=== PATIENT | male | born 1955 | race Caucasian/White ===

== ENCOUNTER → 2018-08-26 13:52 | Outpatient (CLI) | payer MEDICARE, SELFPAY ==
--- NOTE | 2018-08-26 | DI.MRI.S_ITS ---
PROCEDURE: MR CERVICAL SPINE WO CON INDICATIONS: Radiculopathy, cervical region TECHNIQUE: Noncontrast sagittal T1 spin echo and T2 fast spin echo, sagittal STIR, foraminal oblique sagittal T2 fast spin echo, and axial gradient echo or T2 fast spin echo through the cervical spine. COMPARISON: [facility], MR, CERVICAL SPINE W/O CONTRAST, 12/21/2007, 6:47. FINDINGS: Image quality: Excellent. Alignment and Curvature: There is normal bony alignment. Bone Marrow: Marrow demonstrates normal overall signal. Anterior fusion of C5-C7 has been performed. There is mild reactive signal within the endplates adjacent to the at C2-C3, C3-C4, C4-C5, and C7-T1 intervertebral discs. Spinal Cord: Visualized spinal cord has normal size and signal. No cerebellar tonsillar herniation. Paraspinous Soft Tissues: No paravertebral masses. Prevertebral soft tissues are normal in thickness. C2-C3: Congenital canal stenosis. Disc desiccation. Mild diffuse disc bulge with small superimposed left paracentral protrusion. Mild facet hypertrophy bilaterally. Mild canal stenosis. Mild bilateral foraminal stenosis. C3-C4: Congenital canal stenosis. Mild disc desiccation and diffuse disc bulge. Mild facet and uncovertebral hypertrophy bilaterally. Moderate canal stenosis. Moderate right and mild left foraminal stenosis. No change. C4-C5: Mild disc height loss and desiccation. Mild diffuse disc bulge. Congenital canal stenosis. Bilateral facet and uncovertebral hypertrophy. Severe right and moderate left foraminal stenosis. Increased, severe canal stenosis. Mild cord flattening. C5-C6: Status post fusion. Bilateral facet hypertrophy. No significant canal stenosis. Mild bilateral foraminal stenosis. C6-C7: Bilateral facet of vertebrae. Status post fusion. No significant canal stenosis. Mild bilateral foraminal stenosis. No change. C7-T1: The disc desiccation. Mild diffuse disc bulge. Mild bilateral facet hypertrophy. Mild canal stenosis. No foraminal stenosis. No change. IMPRESSION: 1. Status post lower cervical fusion with resolution of previously seen canal stenoses at the fused levels. 2. Multilevel degenerative disc and facet disease, as well as uncovertebral hypertrophy. 3. Multilevel canal stenoses, worst at C4-C5, where there is severe canal stenosis and mild cord flattening. 4. Multilevel foraminal stenoses, worst at C4-C5 on the right where there is severe foraminal stenosis. Dictated by: Chris Schwartz M.D. on 08/26/2018 at 15:32 Approved by: Chris Schwartz M.D. on 08/26/2018 at 15:37
== END ==
PROVIDERS: Family Provider Internal Medicine; PCP Internal Medicine; Visit Provider Internal Medicine
DX: M50.11 Cervical disc disorder with radiculopathy, high cervical region (principal); M48.02 Spinal stenosis, cervical region; Z98.1 Arthrodesis status
CPT/HCPCS: 72141

== ENCOUNTER → 2020-07-31 19:03 | Outpatient (ROUT) | payer OTHER, SELFPAY ==
[2020-07-31 19:28] LABS: HEMOLYSIS < 15 (0-50)
[2020-07-31 19:33] LABS: Aspartate Aminotransferase 29 IU/L (17-59); BUN Creatinine Ratio 19.8 (6-22); Blood Urea Nitrogen 18 mg/dL (9-20); Calcium 9.7 mg/dL (8.4-10.2); Carbon Dioxide 28 mmol/L (22-32); Chloride 106 mmol/L (98-107); Cholesterol 142 mg/dL (140-199); Estimated Glomerular Filt Rate > 60.0 mL/min (>60); Glucose 114 mg/dL (80-110); HDL Cholesterol 55 mg/dL (40-60); LDL Cholesterol Calculated 69 mg/dL (<100); Potassium 4.4 mmol/L (3.4-5.1); Sodium 139 mmol/L (137-145); Triglycerides 91 mg/dL (35-150)
[2020-07-31 20:01] LABS: TSH w/ Reflex to FT4 2.22 uIU/mL (0.47-4.68)
[2020-07-31 20:05] LABS: Prostate Specific Antigen 0.924 ng/mL (0.10-4.00)
== END ==
PROVIDERS: Family Provider Internal Medicine; PCP Internal Medicine; Visit Provider Internal Medicine
DX: I10 Essential (primary) hypertension (principal); E78.2 Mixed hyperlipidemia; E03.9 Hypothyroidism, unspecified; N40.0 Benign prostatic hyperplasia without lower urinary tract symptoms
CPT/HCPCS: 80048; 80061; 84153; 84443; 84450

== ENCOUNTER → 2021-04-01 14:21 | Outpatient (CLI) | payer OTHER, SELFPAY ==
[2021-04-01 15:24] LABS: COVID19 -Nasal RAPID Negative (Negative)
== END ==
PROVIDERS: Family Provider Internal Medicine; PCP Internal Medicine; Visit Provider Physician Assistant
DX: Z01.812 Encounter for preprocedural laboratory examination (principal); Z20.822 Contact with and (suspected) exposure to COVID-19
CPT/HCPCS: 87635; C9803

== ENCOUNTER → 2022-07-16 14:26 | Outpatient (CLI) | payer MEDICARE, SELFPAY ==
[2022-07-16 15:21] LABS: Hematocrit 42.3 % (41-53); Hemoglobin 14.5 g/dL (13.5-17.5); Mean Corpuscular HGB Conc 34.4 % (30-36); Mean Corpuscular Hemoglobin 32.3 PG (26-34); Mean Corpuscular Volume 94.1 fL (80-100); Platelet Count 217 X10^3/uL (150-400); Red Blood Cell Count 4.49 X10^6/uL (4.5-5.9); Red Cell Distribution Width 12.9 % (11.6-14.8); White Blood Cell Count 4.3 X10^3/uL (4.5-11.0)
[2022-07-16 15:35] LABS: Alanine Aminotransferase 28 IU/L (<50); Albumin 4.5 g/dL (3.5-5.0); Albumin Globulin Ratio 1.3 (1.0-2.8); Alkaline Phosphatase 82 U/L (38-126); Aspartate Aminotransferase 35 IU/L (17-59); BUN Creatinine Ratio 15.6 (6-22); Bilirubin Total 0.8 mg/dL (0.2-1.3); Blood Urea Nitrogen 14 mg/dL (9-20); Calcium 9.9 mg/dL (8.4-10.2); Carbon Dioxide 30 mmol/L (22-32); Chloride 101 mmol/L (98-107); Cholesterol 168 mg/dL (140-199); Estimated Glomerular Filt Rate > 60 mL/min (>60); Globulin 3.6 g/dL (1.7-4.1); Glucose 125 mg/dL (80-110); HDL Cholesterol 60 mg/dL (40-60); HEMOLYSIS < 15 (0-50); LDL Cholesterol Calculated 90 mg/dL (<100); Potassium 4.4 mmol/L (3.4-5.1); Sodium 142 mmol/L (137-145); Total Protein 8.1 g/dL (6.3-8.2); Triglycerides 88 mg/dL (35-150)
[2022-07-16 16:05] LABS: Prostate Specific Antigen 1.11 ng/mL (0.10-4.00)
[2022-07-16 16:06] LABS: TSH w/ Reflex to FT4 2.59 uIU/mL (0.47-4.68)
== END ==
PROVIDERS: Family Provider Internal Medicine; PCP Internal Medicine; Referring Provider Internal Medicine; Visit Provider Internal Medicine
DX: E03.9 Hypothyroidism, unspecified (principal); E78.2 Mixed hyperlipidemia; N40.0 Benign prostatic hyperplasia without lower urinary tract symptoms; I10 Essential (primary) hypertension; I48.0 Paroxysmal atrial fibrillation
CPT/HCPCS: 36415; 80053; 80061; 84153; 84443; 85027

== ENCOUNTER → 2022-09-10 13:44 | Outpatient (CLI) | payer MEDICARE, SELFPAY ==
--- NOTE | 2022-09-10 13:45 | DI.ECHO.S_ITS ---
[place] [facility]---------+ [facility] +---------+ : : [address] : : : : [id number] : : : : Phone: [phone]+ Echocardiogram Report + + :Name: LORNA TREJO Study Date: 09/10/2022 Height: 69.5 in: :[facility] ReadingLocation: Weight: 210 lb : : Gender: Male BSA: 2.1 m2 : :: 1955 Age: 67 yrs BP: 148/93 mmHg: :Reason For Study: ATRIAL FIBRILLATION : :Ordering Physician: LAURIE, : :ALMA ROSA Performed By: Elva Vincent : :Referring: ALMA ROSA SULLIVAN : + + Interpretation Summary Left ventricular systolic function remains normal with an estimated ejection fraction of 55 to 60% without any focal wall motion abnormality. Left ventricular volumes appear normal with borderline increased wall thickness which is slightly progressive, but with probable normal diastolic function and normal filling pressures which are likely unchanged. The right ventricle was borderline enlarged but slightly smaller compared to the previous study. Systolic function remains normal. Right ventricular systolic pressure cannot be estimated but CVP continues to be around 3 mmHg. Both atria are normal in size and measure slightly smaller compared to the previous study. There is a aneurysmal interatrial septum but without any Doppler evidence for a shunt. The mitral valve has a borderline flat closure plane but no significant mitral regurgitation and there is no significant functional valvular heart disease. The aortic root remains moderately enlarged but measures slightly smaller at 4.5 cm compared to the previous 4.8 cm. The ascending aorta and aortic arch are mildly enlarged and measure slightly larger compared to the previous study at 3.5 and 3.3 cm, respectively, compared to 3.3 and 2.9 cm previously. Procedure: A two-dimensional transthoracic echocardiogram with color flow and Doppler was performed. The study quality was technically adequate. Comparison is made with the echocardiogram of 04/21/2016. The patient was in sinus bradycardia with heart rates between 59-65 bpm during the exam. Left Ventricle: The left ventricle is normal in size. Left ventricular wall thickness is at the upper limits of normal. This is slightly more prominent compared to the previous study. Left ventricular systolic function appears normal without focal wall motion abnormalities. The ejection fraction is estimated to be 55-60%. Diastolic parameters suggest probable normal left ventricular diastolic function and normal filling pressures. Right Ventricle: The right ventricle is at the upper limits of normal in size. This is smaller compared to the previous study. The right ventricular systolic function is normal. Atria: Both atria are normal in size. Both atria have mildly decreased in size since the prior echo exam. The atrial septum is aneurysmal. The interatrial septum grossly appears intact with no obvious evidence for an atrial septal defect. There is no Doppler evidence for an interatrial shunt. Mitral Valve: There is a flat closure plane of the the mitral valve leaflets. There is trace mitral regurgitation. Aortic Valve: The aortic valve is trileaflet. The aortic valve opens well. There is no aortic valve stenosis. No aortic regurgitation is present. Tricuspid Valve: The tricuspid valve is normal in structure and function. There is trace tricuspid regurgitation. Pulmonary artery pressures cannot be estimated because of the lack of a measurable TR jet velocity but the IVC suggests a CVP of around 3 mmHg. Pulmonic Valve: The pulmonic valve leaflets are thin and pliable; valve motion is normal. There is no pulmonic valvular regurgitation. There is no significant valvular heart disease. Great Vessels: The aortic root is moderately dilated. This is slightly smaller compared to the previous study. The ascending aorta is at the upper limits of normal in size. The aortic arch is mildly enlarged. This is slightly larger compared to the previous study. The IVC is of normal diameter and collapses greater than 50% with a sniff. This suggests a low right atrial pressure of 3 mm Hg. Pericardium/ Pleura There is no pericardial effusion. There is no pleural effusion. MMode/2D Measurements & Calculations LVIDd: 5.1 cm LVOT diam: 2.2 cm LVIDs: 3.4 cm Ao root diam: 4.5 cm FS: 33.3 % asc Aorta Diam: 3.5 cm IVSd: 1.1 cm Ao Arch Diam (Prox Trans): 3.3 cm LVPWd: 1.1 cm LV solano. diameter/BSA (cm/m^2): 2.4 LV sys. diameter/BSA (cm/m^2): 1.6 LA A2 area: 23.5 cm2 RA long axis: 5.4 cm LA A4 area: 18.5 cm2 RA area: 15.9 cm2 LA length (vol): 5.2 cm RA vol: 40.2 ml LA vol: 70.5 ml RA : 19.0 ml/m2 LA vol index: 33.2 ml/m2 IVC diam: 1.5 cm RVD1 (basal): 4.5 cm RVD2 (mid): 3.5 cm TAPSE: 2.4 cm Doppler Measurements & Calculations Ao V2 max: 139.6 cm/sec LVOT Max Joey: 114.5 cm/sec Ao V2 mean: 94.5 cm/sec LV V1 max P.2 mmHg Ao max P.8 mmHg LV V1 VTI: 25.2 cm Ao mean P.1 mmHg FLAQUITO(I,D): 3.3 cm2 Ao V2 VTI: 28.8 cm FLAQUITO(V,D): 3.1 cm2 sev ratio: 0.88 FLAQUITO indexed to BSA (cm^2/m^2): 1.6 MV E max joey: 96.3 cm/sec TR max joey: 214.8 cm/sec MV A max joey: 85.9 cm/sec TR max P.5 mmHg MV E/A: 1.1 PA V2 max: 101.7 cm/sec Med Peak E' Joey: 7.5 cm/sec PA V2 mean: 70.3 cm/sec E/E' med: 12.8 PA mean P.2 mmHg Lat Peak E' Joey: 9.7 cm/sec PA pr(Accel): 24.2 mmHg E/E' lat: 9.9 E/e' average: 11.3 MV dec time: 0.26 sec SV(LVOT): 94.7 ml Reading Physician:04:52 PM
== END ==
PROVIDERS: Family Provider Internal Medicine; PCP Internal Medicine; Referring Provider Specialist; Visit Provider Specialist
DX: I48.0 Paroxysmal atrial fibrillation (principal); Q21.10 Atrial septal defect, unspecified; I77.810 Thoracic aortic ectasia
CPT/HCPCS: 93306

== ENCOUNTER → 2023-11-18 16:47 | Outpatient (CLI) | payer OTHER, SELFPAY ==
[2023-11-18 18:12] LABS: Aspartate Aminotransferase 31 IU/L (17-59); Blood Urea Nitrogen 12 mg/dL (9-20); Calcium 10.1 mg/dL (8.4-10.2); Carbon Dioxide 27 mmol/L (22-32); Chloride 103 mmol/L (98-107); Cholesterol 163 mg/dL (140-199); Estimated Glomerular Filt Rate > 60 mL/min (>60); Glucose 103 mg/dL (80-110); HDL Cholesterol 47 mg/dL (40-60); HEMOLYSIS < 15 (0-50); LDL Cholesterol Calculated 93 mg/dL (<100); Potassium 4.3 mmol/L (3.4-5.1); Sodium 137 mmol/L (137-145); Triglycerides 117 mg/dL (35-150)
[2023-11-18 18:37] LABS: TSH w/ Reflex to FT4 1.06 uIU/mL (0.47-4.68)
[2023-11-18 18:41] LABS: Prostate Specific Antigen 1.04 ng/mL (0.10-4.00)
== END ==
PROVIDERS: Family Provider Internal Medicine; PCP Internal Medicine; Referring Provider Internal Medicine; Visit Provider Internal Medicine
DX: E03.9 Hypothyroidism, unspecified (principal); N40.1 Benign prostatic hyperplasia with lower urinary tract symptoms; N13.8 Other obstructive and reflux uropathy; E78.2 Mixed hyperlipidemia
CPT/HCPCS: 36415; 80048; 80061; 84153; 84443; 84450

== ENCOUNTER → 2024-02-07 15:56 | Outpatient (CLI) | payer MEDICARE, SELFPAY ==
--- NOTE | 2024-02-07 16:00 | DI.RAD.S_ITS ---
PROCEDURE: XR ANKLE LT MIN 3V INDICATIONS: L ankle pain after fall TECHNIQUE: 3 views of the ankle were acquired. COMPARISON: None. FINDINGS: Bones: There is minimal lucency seen involving the lateral talar dome. No additional focal bony abnormality can be seen. Generalized degenerative change and osteopenia can be seen. Ankle mortise is normally aligned. No suspicious bony lesions. Soft tissues: No tibiotalar joint effusion. Achilles tendon appears normal. Atherosclerotic calcification is noted. IMPRESSION: Minimal lucency seen involving the lateral talar dome. Please consider osteochondral defect. If it would be helpful for clinical management decision making, please consider a dedicated, scheduled ankle MRI for further evaluation (assuming that there is no contraindication). Dictated by: Marc Fitzgerald M.D. on 02/07/2024 at 15:23 Approved by: Marc Fitzgerald M.D. on 02/07/2024 at 15:24
== END ==
PROVIDERS: Family Provider Internal Medicine; PCP Internal Medicine; Referring Provider Physician Assistant Medical; Visit Provider Physician Assistant Medical
DX: M25.572 Pain in left ankle and joints of left foot (principal)
CPT/HCPCS: 73610

== ENCOUNTER 2024-12-20 06:12 | Day surgery (SDC) | payer MEDICARE, SELFPAY ==
[2024-12-09 12:37] VITALS: BMI 31.4
[2024-12-20] VITALS (9 sets, daily range): BP systolic 138–159; BP diastolic 78–93; PULSE 15–84; RESP 9–72; TEMP 36.2–36.7; O2SAT 94–97; BMI 31.7
--- NOTE | 2024-12-20 | PATH_ITS ---
[facility] Accession Number: [id number] No. of containers..01 Tissue . 01 Material submitted: . prostate - PROSTATE CHIPS . 01 Diagnosis: PROSTATE CHIPS, TRANSURETHRAL PROSTATIC TISSUE RESECTION: Benign prostatic parenchyma, weight 5 grams, with stromal nodular hyperplasia. Benign urothelial mucosa also present. Negative for high-grade prostatic intraepithelial neoplasia or invasive carcinoma. MRV 12/22/2024 1532 Local . 01 Electronically signed: . Leydi Bautista MD, Pathologist NPI- [id number] . 01 Gross description: . Received in formalin with two patient identifiers and prostate chips, are multiple ridley and largely hemorrhagic soft tissue fragments weighing 5 grams and aggregating to 4.5 x 3.3 x 1.4 cm. Submitted entirely in A1-A5. ([id number]) /MRV 12/21/2024 1913 Local . 01 Pathologist provided ICD-10: N40.1 . 01 CPT . 375604 Specimen Comment: A courtesy copy of this report has been sent to [phone] Performed at: [address] [address] [address], [place], [place] [id number] MD Samson Marquez MD Phone: [phone]
[2024-12-20] MEDS: LACTATED RINGERS 1,000 ML 42 ML IV ×2 (07:24→09:46)
[2024-12-20] MEDS: ACETAMINOPHEN 325 MG TABLET 975 MG PO (07:24)
--- NOTE | 2024-12-20 07:39 | PM.PREOP ---
Pre-operative Note COVID-19 COVID-19 status: Not tested Interval Note History & Physical reviewed/Exam performed by Physician: Yes Changes to H&P: No
[2024-12-20] MEDS: CEFAZOLIN 2 GM/100 ML PREMIX 100 ML IV (08:01)
--- NOTE | 2024-12-20 08:23 | SUR.OPER ---
Lithotomy on padded OR bed, head on pillow, arms secured on padded arm boards at <90 degrees abduction. Legs secured in padded yellow fins stirrups.
--- NOTE | 2024-12-20 09:29 | P.OP_ITS ---
Procedure & Clinicians Procedure: 1. Aquablation 2. Transrectal ultrasound of prostate 3. Transurethral resection of prostate with fulguration 4. Placement of Vu catheter Same procedure as scheduled: Yes Indications: This 69-year-old gentleman presented with complaints of BPH with LUTS failing medical management was worked up and found to be an ideal candidate for Aquablation. Had a prostate in the 40 g range details of his workup or in the history of present illness of his H&P. He presents this time for Aquablation to treat his lower urinary tract symptoms/bladder outlet obstruction. Surgeon: Xander Huff Click Yes if Unassisted: Yes Anesthesia Type: General Operative Notes Findings: Findings: Urethral meatus is normal, urethra is normal along its length with normal mucosa. The sphincter as well coapted. The prostate exhibits bilobar obstruction with minimal bulging into the bladder and no median lobe. The ureteral orifices in normal position with clear efflux both at the beginning and the end of the case. The bladder itself exhibited severe trabeculation and no other abnormality. At the end of the procedure the patient's prostate was widely patent and with the bladder full and the scope removed he had a vigorous stream. Total Aquablation time was 7 minutes time from truss the catheter was 58 minutes. Blood loss was 25 mL. And no other abnormalities were noted. Closure Type: not applicable Specimen(s): other (Prostate chips) Prosthetic devices, grafts, tissues, transplants, or devices: [address] catheter with 45 cc in the balloon was left in good position to continuous bladder irrigation. Applied: catheter (Please see above) Estimated Blood Loss (mL): 25 Blood products transfused: none Procedure in detail: Procedure in detail: After informed consent was obtained, the patient was identified brought to the operating room where he was placed in a supine position on the table. Once there anesthesia was induced and maintained.. Ensuring an adequate level of anesthesia the patient was transitioned to the lithotomy position. Once in lithotomy position he was prepped in a sterile fashion. After time-out, administration of antibiotics, ensuring an adequate level of anesthesia, 60 cc of ultrasound gel was instilled within the rectum and the ultrasound probe was placed in the following fashion. The truss stepper which was mounted to the articulating arm and secured the ultrasound probe was inserted and aligned and confirmation made that it the prostate was centered and aligned in both the transverse and longitudinal planes. The bladder neck, verumontanum landmarks within the prostate and external sphincter were identifi ed. With the ultrasound probe in place aligned and centered the patient was then draped in a sterile fashion. The aqua beam handpiece which was then inserted through the prostatic urethra prostate and into the bladder. Where cystoscopy was performed as it was inserted the level of the external sphincter verumontanum mid prostate and bladder neck were all noted on the ultrasound. The aqua beam handpiece was then secured to the handpiece articulating arm. It was then confirmed that the Aquablation handpiece and truss probe were parallel and colinear. The confirmation and was then made that the aqua beam nozzle was centered and anterior the of the bladder neck. The cystoscope was then retracted and the prostate verumontanum and external sphincter were visualized once again and the tip of the scope was left just proximal to the external sphincter. The alignment of the truss probe and Aquablation handpiece was again confirmed and compression applied to the truss probe. Horizontal alignment of the aqua jet nozzle was noted to be again at the 3 and 9 o'clock position. The Aquablation ablation treatment zones were then planned and real-time using live ultrasound. The depth and radial angles of resection were defined in the transverse view in the longitudinal view the Aquablation beam nozzle was identified and registered its position with the software. The length of treatment was then identified. And the contours at the bladder neck mid prostate and veru were defined. There was no median lobe and so an no planning was needed for that with the treatment plan in place and ensuring the patient was paralyzed the Aquablation treatment was started. It appeared that the nozzle was not aligned so 1 minute into the treatment and was stopped and re planning was performed with this in place of the 1st pass was completed. This was 2 minutes and 50 seconds. With this completed a 2nd treatment pass was planned and completed total time was 7 minutes. With the Aquablation team and Aquablation completed the cystoscope was advanced to the tip of the hand piece and the hand piece was looked out under direct vision after it from the handpiece articulating arm. A resectoscope was then inserted. Mauricio evacuator used to evacuate the bladder and clots. The resectoscope was then used to resect the bladder neck from the 9 to 3 o'clock position after identifying the ureteral orifice. Points of bleeding were controlled with the electrocautery. Anteriorly points of bleeding were then controlled and sitting at the verumontanum there were 2 areas of arterial bleeding in the mid prostate which were controlled. Ellik evacuator was then once again employed to evacuate the remaining chips. The effluent was clear once again the resectoscope was inserted and points of bleeding controlled. At this point the bladder was left full the scope was removed and the patient had a vigorous stream then with the aid of a cath guide and ultrasound visualization a catheter was passed into the bladder the balloon filled with 45 cc of sterile water placed to gravity drainage and CBI. The effluent remained clear. At this point the patient was awakened having tolerated the procedure well. There were no complications and he was transferred to the postanesthesia care unit for recovery having had the CBI continued. Again there were no complications Complications: none Post-operative Condition: stable Disposition: PACU Plan for aftercare: Patient will recover in the postanesthesia care unit in a decision be made regarding discharge to home as time has passed. Patient will follow up my office after discharge on for catheter removal and then in 10-14 days.
[2024-12-20] MEDS: HYDROCODONE/ACET 5/325 TABLET 1 TAB PO (09:34)
--- NOTE | 2024-12-20 09:36 | SUR.PHASEI ---
Discussed 975mg tylenol given at 0730 with Monica Lewis CRNA. Okay to give hydrocodone/acet per [employer].
[2024-12-20] MEDS: PHENAZOPYRIDINE 100 MG TABLET 200 MG PO (09:53)
== END 2024-12-20 12:06 | disposition home or self-care (01) ==
PROVIDERS: Family Provider Internal Medicine; PCP Internal Medicine; Referring Provider Urology; Visit Provider Urology
PROC: 0VT08ZZ Resection of Prostate, Via Natural or Artificial Opening Endoscopic (ICD-10-PCS; CPT 52597; principal; 2024-12-20 07:45)
DX: N40.1 Benign prostatic hyperplasia with lower urinary tract symptoms (principal); N13.8 Other obstructive and reflux uropathy; R39.198 Other difficulties with micturition; R39.13 Splitting of urinary stream; R35.1 Nocturia; Z87.891 Personal history of nicotine dependence
CPT/HCPCS: 0421T; 82962; C2596; J0690; J2405; J2704; J3010; J3490

== ENCOUNTER → 2024-12-22 15:38 | Outpatient (CLI) | payer MEDICARE, SELFPAY | PROVIDERS: Family Provider Internal Medicine; PCP Internal Medicine; Visit Provider Urology | DX: R39.9 Unspecified symptoms and signs involving the genitourinary system (principal) | CPT/HCPCS: 87086 ==

== ENCOUNTER → 2025-01-02 13:52 | Outpatient (CLI) | payer MEDICARE, SELFPAY | PROVIDERS: Family Provider Internal Medicine; PCP Internal Medicine; Visit Provider Urology | DX: R35.1 Nocturia (principal); N40.1 Benign prostatic hyperplasia with lower urinary tract symptoms; N13.8 Other obstructive and reflux uropathy | CPT/HCPCS: 87086 ==

== ENCOUNTER → 2025-03-14 13:55 | Outpatient (CLI) | payer MEDICARE, SELFPAY ==
--- NOTE | 2025-03-14 13:57 | DI.RAD.S_ITS ---
PROCEDURE: XR CHEST 2V INDICATIONS: cough TECHNIQUE: 2 views of the chest were acquired. COMPARISON: None. FINDINGS: Heart, mediastinum and pulmonary vascular: Heart is upper limits of normal in size. Mediastinum is unremarkable. Pulmonary vascular is normal. Lungs: Clear Pleural spaces: Normal-no effusions or pneumothorax. Bones and soft tissues: Mild chronic wedging of the mid lower thoracic vertebral bodies appreciated. Moderate degenerative disc disease seen throughout thoracic spine IMPRESSION: No acute cardiopulmonary disease. Dictated by: Vincent Eller M.D. on 03/15/2025 at 10:18 Approved by: Vincent Eller M.D. on 03/15/2025 at 10:19
[2025-03-14 14:20] LABS: Hematocrit 44.7 % (41-53); Hemoglobin 15.2 g/dL (13.5-17.5); Mean Corpuscular Hemoglobin 33.2 PG (26-34); Mean Corpuscular Volume 97.6 fL (80-100); Platelet Count 249 X10^3/uL (150-400); Red Blood Cell Count 4.59 X10^6/uL (4.5-5.9); Red Cell Distribution Width 12.6 % (11.6-14.8); White Blood Cell Count 5.8 X10^3/uL (4.5-11.0)
[2025-03-14 14:46] LABS: Aspartate Aminotransferase 39 IU/L (17-59); BUN Creatinine Ratio 19.5 (6-22); Blood Urea Nitrogen 16 mg/dL (9-20); Calcium 9.8 mg/dL (8.4-10.2); Carbon Dioxide 24 mmol/L (22-32); Chloride 105 mmol/L (98-107); Cholesterol 226 mg/dL (140-199); Estimated Glomerular Filt Rate > 60 mL/min (>60); Glucose 106 mg/dL (70-99); HDL Cholesterol 63 mg/dL (40-60); HEMOLYSIS < 15 (0-50); LDL Cholesterol Calculated 150 mg/dL (<100); Potassium 4.6 mmol/L (3.4-5.1); Sodium 137 mmol/L (137-145); Triglycerides 65 mg/dL (35-150)
[2025-03-14 15:15] LABS: TSH w/ Reflex to FT4 2.97 uIU/mL (0.47-4.68)
== END ==
PROVIDERS: Family Provider Internal Medicine; PCP Internal Medicine; Referring Provider Internal Medicine; Visit Provider Internal Medicine
DX: R05.9 Cough, unspecified (principal); I10 Essential (primary) hypertension; R55 Syncope and collapse; E78.2 Mixed hyperlipidemia; E03.9 Hypothyroidism, unspecified
CPT/HCPCS: 36415; 71046; 80048; 80061; 84443; 84450; 85027

== ENCOUNTER → 2025-05-05 14:11 | Outpatient (CLI) | payer MEDICARE, SELFPAY ==
--- NOTE | 2025-05-05 14:12 | DI.RAD.S_ITS ---
PROCEDURE: XR LUMBAR SPINE MIN 4V INDICATIONS: BACK PAIN TECHNIQUE: 5 views of the lumbar spine were acquired, including bilateral oblique views. COMPARISON: None. FINDINGS: Bones: 5 nonrib-bearing vertebrae are present. There is slight levo scoliotic bony alignment. No vertebral body compression fractures. No suspicious bony lesions. Moderate to moderately severe degenerative disc disease and facet osteoarthritis is seen along the lumbosacral spine, most pronounced at L4-5 and L5-S1. Spinal and foraminal stenosis likely is present in this area. Soft tissues: Overlying bowel gas pattern is normal. No suspicious soft tissue calcifications. Oblique images: No pars defects. IMPRESSION: Mild levoscoliosis centered at L 2-L3. Moderately severe degenerative disc disease and facet osteoarthritis most pronounced at the low lumbosacral spine where significant spinal and foraminal stenosis likely is present. A more accurate assessment for degree of potential nerve root impingement could be obtained utilizing MR scanning. No compression fracture seen. Note: An electronic control device is seen overlying the uppermost margin of the right chest/abdomen area imaging, partially visualized. Dictated by: Augustus Lopes M.D. on 05/05/2025 at 14:42 Approved by: Augustus Lopes M.D. on 05/05/2025 at 14:45
== END ==
PROVIDERS: PCP Internal Medicine; Referring Provider Physical Medicine & Rehabilitation; Visit Provider Physical Medicine & Rehabilitation
DX: M51.369 Other intervertebral disc degeneration, lumbar region without mention of lumbar back pain or lower extremity pain (principal); M51.379 Other intervertebral disc degeneration, lumbosacral region without mention of lumbar back pain or lower extremity pain; M47.816 Spondylosis without myelopathy or radiculopathy, lumbar region; M47.817 Spondylosis without myelopathy or radiculopathy, lumbosacral region; M41.9 Scoliosis, unspecified; M54.9 Dorsalgia, unspecified
CPT/HCPCS: 72110

== ENCOUNTER → 2025-05-08 14:43 | Outpatient (CLI) | payer MEDICARE, SELFPAY ==
[2025-05-08 16:24] LABS: Cholesterol 168 mg/dL (140-199); HDL Cholesterol 64 mg/dL (40-60); Triglycerides 99 mg/dL (35-150)
== END ==
PROVIDERS: PCP Internal Medicine; Referring Provider Internal Medicine; Visit Provider Internal Medicine
DX: E78.2 Mixed hyperlipidemia (principal)
CPT/HCPCS: 36415; 80061

== ENCOUNTER → 2025-08-22 16:07 | Outpatient (CLI) | payer MEDICARE, SELFPAY ==
[2025-08-22 17:12] LABS: Blood Urea Nitrogen 18 mg/dL (9-20); Calcium 10.0 mg/dL (8.4-10.2); Carbon Dioxide 28 mmol/L (22-32); Chloride 102 mmol/L (98-107); Estimated Glomerular Filt Rate > 60 mL/min (>60); Glucose 119 mg/dL (70-99); HEMOLYSIS < 15 (0-50); Potassium 4.5 mmol/L (3.4-5.1); Sodium 137 mmol/L (137-145)
== END ==
PROVIDERS: PCP Internal Medicine; Referring Provider Internal Medicine; Visit Provider Internal Medicine
DX: I10 Essential (primary) hypertension (principal)
CPT/HCPCS: 36415; 80048

== ENCOUNTER 2025-09-13 19:43 | Emergency (ER) | payer MEDICARE, SELFPAY ==
[2025-09-13] VITALS (12 sets, daily range): BP systolic 98–133; BP diastolic 55–77; PULSE 67–79; RESP 13–31; O2SAT 92–98
--- NOTE | 2025-09-13 19:51 | ED.TRAUMA ---
HPI - Trauma General Chief Complaint: Trauma Stated Complaint: slurred speech, fall Time Seen by Provider: 09/13/25 19:51 History of Present Illness HPI narrative: 70-year-old gentleman brought in by EMS after falling backwards while intoxicated having had 2 pt of vodka earlier today for which called EMS. He has no complaints at this time. He denies headache, dizziness, chest pain, neck pain, back pain, abdominal pain, leg pain, numbness, tingling, down the legs, or on bowel or bladder incontinence. Other than what is stated 14 point review of system is negative. Related Data Home Medications ?Medication ?Instructions ?Recorded ?Confirmed Lactobacillus rhamnosus GG 20 1 cell PO DAILY 03/12/22 08/09/25 billion cell capsule (Probiotic Digestive Care) aspirin 81 mg tablet,delayed 81 mg PO DAILY 03/12/22 08/09/25 release cetirizine 10 mg tablet 10 mg PO DAILY PRN Allergic 03/12/22 08/09/25 Symptoms multivitamin 1 tab PO DAILY 03/12/22 08/09/25 sennosides 8.6 mg capsule (senna) 8.6 mg PO DAILY 03/12/22 08/09/25 cholecalciferol (vitamin D3) 50 50 mcg PO DAILY 12/09/24 08/09/25 mcg (2,000 unit) capsule (Vitamin D3) potassium citrate 99 mg capsule 99 mg PO DAILY 12/09/24 08/09/25 docusate sodium 100 mg capsule 100 mg PO DAILY 08/09/25 08/09/25 triamcinolone acetonide 0.1 % 1 applic topical DAILY 08/09/25 08/09/25 topical ointment Previous Rx's ?Medication ?Instructions ?Recorded rosuvastatin 20 mg tablet 20 mg PO DAILY #90 tabs 04/07/25 trazodone 100 mg tablet 100 mg PO DAILY #90 tabs 07/20/25 hydrocodone 5 mg-acetaminophen 325 1 tab PO TID PRN pain #90 tabs 08/09/25 mg tablet hydrocodone 5 mg-acetaminophen 325 1 tab PO TID PRN pain #90 tabs 08/09/25 mg tablet hydrocodone 5 mg-acetaminophen 325 1 tab PO TID PRN pain #90 tabs 08/09/25 mg tablet losartan 50 mg tablet 50 mg PO DAILY #90 tabs 08/09/25 fluoxetine 20 mg capsule 40 mg (2 x 20 mg) PO DAILY #180 09/01/25 caps levothyroxine 88 mcg tablet 88 mcg PO DAILY #90 tabs 09/01/25 diltiazem HCl 300 mg capsule,24 300 mg PO DAILY #90 caps 09/07/25 hr,extended release Allergies Allergy/AdvReac Type Severity Reaction Status Date / Time bupropion Allergy Severe Anaphylaxis Verified 09/13/25 19:54 pregabalin (From Lyrica) Allergy Severe Difficulty Verified 09/13/25 19:54 Breathing chlorhexidine Allergy Rash Verified 09/13/25 19:54 duloxetine AdvReac Intermediate Nausea Verified 09/13/25 19:54 gabapentin AdvReac Intermediate Verified 09/13/25 19:54 mirtazapine AdvReac Intermediate Verified 09/13/25 19:54 sertraline AdvReac Intermediate Rash Verified 09/13/25 19:54 dexamethasone AdvReac Unknown Rash Verified 09/13/25 19:54 Review of Systems Review of Systems ROS Unobtainable: All systems reviewed & are unremarkable except as noted in HPI and below Patient History Medical History Acquired hypothyroidism Anxiety Aortic stenosis (~2010) Arthritis BPH w urinary obs/LUTS Carpal tunnel syndrome (~2016) Cataracts, bilateral (~2009) Cervical spine disease (~2008) Cervicalgia Chronic back pain (~1971) Chronic insomnia Chronic, continuous use of opioids Colitis (~1989) Depression Esophageal ulcer (~2000) Essential hypertension Frequency-urgency syndrome Hearing loss (~1984) History of colonic polyps History of tobacco use Incomplete emptying of bladder Lumbar strain Measles (~1961) Migraine Mixed hyperlipidemia Mumps (~1960) Nocturia Occipital headache Ocular rosacea Overactive bladder Paroxysmal atrial fibrillation Peptic ulcer disease Scoliosis (~1971) Secondhand smoke exposure Sleep apnea (~1971) Splitting of urinary stream Thyroid disease Tinnitus (~2016) Valvular heart disease Surgical History Anesthesia History of back surgery (~1994) History of hernia repair History of nasal septoplasty (~2010) History of neck surgery History of surgery (~1989) Trigger finger of left hand Family History Mother Mental health problem Alcoholic Hx of migraines Father Diabetes mellitus Cancer Family/Other Thyroid disorder Hearing impairment Social History marital status: number of children: 2 household members: spouse lives independently: Yes occupational status: previously employed Smoking Status: Unknown if ever smoked Tobacco: How many years used: 12 alcohol intake: former substance use type: does not use Type(s) of exercise: walking frequency: daily Exam Narrative Exam Narrative: GENERAL: [70] year old patient appears stated age. Well-developed patient, in mild distress. HEAD: Atraumatic. Normocephalic. EYES: Pupils equal round and reactive. Extraocular motions intact. No scleral icterus. No injection or drainage. ENT: Nose without bleeding, purulent drainage. Throat without erythema, tonsillar hypertrophy or exudate. Airway patent. NECK: Trachea midline. Non tender CARDIOVASCULAR: Regular rate and rhythm without murmurs, gallops, or rubs. RESPIRATORY: Clear to auscultation. Breath sounds equal bilaterally. No wheezes, rales, or rhonchi. GASTROINTESTINAL: Abdomen soft, non-tender, nondistended. EXTREMITIES: No edema or joint tenderness. BACK: Nontender without deformity or crepitance. No flank tenderness. NEURO: AOx3. SKIN: No rash or erythema of visible areas Initial Vital Signs Initial Vital Signs: Vital Signs Pulse Rate 79 09/13/25 19:51 Respiratory Rate 16 09/13/25 19:51 Blood Pressure 131/77 09/13/25 19:51 Pulse Oximetry 97 09/13/25 19:51 Course Orders Ordered: ED Orders 09/13/25 19:53 CT Trauma Chest Abdomen Pelvis Stat EKG-12 Lead Stat 09/13/25 19:54 CT cervical spine wo con Stat CT head/brain wo con Stat 09/13/25 20:23 Complete Blood Count AUTO DIFF Stat Comprehensive Metabolic Panel Stat Ethanol (ETOH) Stat Lactate (Lactic Acid) Stat Lipase Stat PTT Partial Thromboplastin Derrick Stat Prothrombin Time INR Stat 09/13/25 20:50 Trop I [Troponin I] Stat Type and Screen Stat 09/13/25 21:11 Urine Drug Screen, Rapid Stat 09/13/25 21:50 EKG-12 Lead Stat 09/13/25 22:40 Trop I [Troponin I] Routine 09/14/25 01:00 Lactate (Lactic Acid) Routine 09/14/25 01:42 D Dimer Stat Discontinued Medications Diphenhydramine HCl (Diphenhydramine 50 Mg/Ml Vial) 50 mg IM NOW ONE Stop: 09/13/25 20:07 Last Admin: 09/13/25 20:10 Dose: 50 mg Documented By: AB Droperidol (Droperidol 2.5 Mg/Ml Vial) 2.5 mg IM NOW ONE Stop: 09/13/25 20:07 Last Admin: 09/13/25 20:10 Dose: 2.5 mg Documented By: AB Lactated Ringer's (Lactated Ringers) 1,000 mls @ 1,000 mls/hr IV BOLUS ONE Stop: 09/13/25 20:53 Last Infusion: 09/13/25 21:22 Dose: Infused Documented By: Admin: 09/13/25 20:46 Dose: 1,000 mls/hr Documented By: AB Lactated Ringer's (Lactated Ringers) 1,000 mls @ 2,000 mls/hr IV BOLUS ONE Stop: 09/13/25 23:45 Last Infusion: 09/14/25 00:30 Dose: Infused Documented By: Admin: 09/13/25 23:24 Dose: 2,000 mls/hr Documented By: AB Lactated Ringer's (Lactated Ringers) 1,000 mls @ 2,000 mls/hr IV BOLUS ONE Stop: 09/14/25 00:59 Last Infusion: 09/14/25 01:10 Dose: Infused Documented By: Admin: 09/14/25 00:30 Dose: 2,000 mls/hr Documented By: AB Naloxone HCl (Naloxone 4 Mg Nasal [place]) 4 mg MISC DIRECTED ONE Stop: 09/14/25 01:13 Vital Signs Vital signs: Vital Signs - 8 hr 09/13/25 19:51 09/13/25 19:51 09/13/25 19:54 Pulse Rate 79 77 Respiratory Rate 16 16 Blood Pressure 131/77 133/77 Pulse Oximetry 97 98 Oxygen Delivery Method Room Air 09/13/25 20:00 09/13/25 20:00 09/13/25 20:30 Pulse Rate 77 67 Respiratory Rate 31 H 16 Blood Pressure 127/65 Pulse Oximetry 98 95 Oxygen Delivery Method Room Air Room Air 09/13/25 20:45 09/13/25 20:45 09/13/25 21:00 Pulse Rate 73 71 Respiratory Rate 20 15 Blood Pressure 131/64 Pulse Oximetry 92 Oxygen Delivery Method Room Air 09/13/25 21:00 09/13/25 21:30 09/13/25 21:30 Pulse Rate 71 Respiratory Rate 14 Blood Pressure 133/69 110/55 L Pulse Oximetry 93 Oxygen Delivery Method Room Air 09/13/25 22:00 09/13/25 22:00 09/13/25 22:30 Pulse Rate 72 71 Respiratory Rate 17 13 Blood Pressure 109/59 L Pulse Oximetry 96 95 Oxygen Delivery Method Room Air 09/13/25 22:30 09/13/25 23:00 09/13/25 23:06 Pulse Rate 72 76 Respiratory Rate 17 16 Blood Pressure 108/58 L Pulse Oximetry 97 Oxygen Delivery Method 09/13/25 23:06 09/13/25 23:30 09/13/25 23:30 Pulse Rate 73 Respiratory Rate 13 Blood Pressure 98/55 L 126/64 Pulse Oximetry 96 Oxygen Delivery Method 09/14/25 00:00 09/14/25 00:00 09/14/25 00:30 Pulse Rate 81 78 Respiratory Rate 18 14 Blood Pressure 117/63 Pulse Oximetry 97 98 Oxygen Delivery Method Room Air 09/14/25 00:30 09/14/25 01:00 09/14/25 01:00 Pulse Rate 81 Respiratory Rate 15 Blood Pressure 125/65 124/61 Pulse Oximetry 97 Oxygen Delivery Method Room Air MDM - Trauma Lab Data 09/13/25 20:23 09/13/25 20:23 Labs: Lab Results 09/13/25 09/13/25 09/13/25 Range/Units 20:23 20:50 21:11 WBC 8.3 (4.5-11.0) X10^3/uL RBC 4.45 L (4.5-5.9) X10^6/uL Hgb 14.9 (13.5-17.5) g/dL Hct 42.8 (41-53) % MCV 96.1 (80-100) fL MCH 33.5 (26-34) PG MCHC 34.8 (30-36) % RDW 12.6 (11.6-14.8) % Plt Count 260 (150-400) X10^3/uL Neut % (Auto) 75.8 H (50-75) % Lymph % (Auto) 16.7 L (25-40) % [place] % (Auto) 5.4 (3-14) % Eos % (Auto) 1.4 L (2-4) % Baso % (Auto) 0.7 (0-2) % Neut # (Auto) 6300 (7565-2860) /uL Lymph # (Auto) 1400 (4621-5021) /uL [place] # (Auto) 400 (0-900) /uL Eos # (Auto) 100 (0-450) /uL Baso # (Auto) 100 (0-100) /uL PT 11.7 (9.4-12.5) SECONDS INR 1.0 (0.9-1.3) APTT 28 (25.1-36.5) SECONDS Sodium 142 (137-145) mmol/L Potassium 4.3 (3.4-5.1) mmol/L Chloride 105 (98-107) mmol/L Carbon Dioxide 26 (22-32) mmol/L BUN 14 (9-20) mg/dL Creatinine 0.83 (0.66-1.25) mg/dL Estimated GFR > 60 (>60) mL/min BUN/Creatinine Ratio 16.9 (6-22) Glucose 120 H (70-99) mg/dL Lactate 2.2 H (0.7-2.1) mmol/L Calcium 9.5 (8.4-10.2) mg/dL Total Bilirubin 0.6 (0.2-1.3) mg/dL AST 38 (17-59) IU/L ALT 29 (<50) IU/L Alkaline Phosphatase 96 (38-126) U/L Troponin I < 0.012 (0.01-0.034) ng/mL Total Protein 8.2 (6.3-8.2) g/dL Albumin 4.8 (3.5-5.0) g/dL Globulin 3.4 (1.7-4.1) g/dL Albumin/Globulin Ratio 1.4 (1.0-2.8) Lipase 43 (23-300) U/L U Opiates 300ng/mL cut Negative (Negative) Ur Oxycodone Screen Negative (Negative) Urine Methadone Screen Negative (Negative) Ur Barbiturates Screen Negative (Negative) U Tricyclic Antidepress Negative (Negative) Ur Phencyclidine Scrn Negative (Negative) Ur Amphetamines Screen Negative (Negative) U Methamphetamines Scrn Negative (Negative) Ur MDMA Scrn (Ecstasy) Negative (Negative) U Benzodiazepines Scrn Negative (Negative) Urine Cocaine Screen Negative (Negative) U Marijuana (THC) Screen Negative (Negative) Urine pH Normal (Normal) Urine Specific [place] Normal (Normal) Ethyl Alcohol 289 H (<10) mg/dL Ur Creatinine Normal (Normal) Blood Type O Negative Antibody Screen Negative 09/13/25 09/14/25 Range/Units 22:40 01:00 WBC (4.5-11.0) X10^3/uL RBC (4.5-5.9) X10^6/uL Hgb (13.5-17.5) g/dL Hct (41-53) % MCV (80-100) fL MCH (26-34) PG MCHC (30-36) % RDW (11.6-14.8) % Plt Count (150-400) X10^3/uL Neut % (Auto) (50-75) % Lymph % (Auto) (25-40) % [place] % (Auto) (3-14) % Eos % (Auto) (2-4) % Baso % (Auto) (0-2) % Neut # (Auto) (2336-4771) /uL Lymph # (Auto) (7210-7911) /uL [place] # (Auto) (0-900) /uL Eos # (Auto) (0-450) /uL Baso # (Auto) (0-100) /uL PT (9.4-12.5) SECONDS INR (0.9-1.3) APTT (25.1-36.5) SECONDS Sodium (137-145) mmol/L Potassium (3.4-5.1) mmol/L Chloride (98-107) mmol/L Carbon Dioxide (22-32) mmol/L BUN (9-20) mg/dL Creatinine (0.66-1.25) mg/dL Estimated GFR (>60) mL/min BUN/Creatinine Ratio (6-22) Glucose (70-99) mg/dL Lactate 6.4 H* 3.1 H (0.7-2.1) mmol/L Calcium (8.4-10.2) mg/dL Total Bilirubin (0.2-1.3) mg/dL AST (17-59) IU/L ALT (<50) IU/L Alkaline Phosphatase (38-126) U/L Troponin I < 0.012 (0.01-0.034) ng/mL Total Protein (6.3-8.2) g/dL Albumin (3.5-5.0) g/dL Globulin (1.7-4.1) g/dL Albumin/Globulin Ratio (1.0-2.8) Lipase (23-300) U/L U Opiates 300ng/mL cut (Negative) Ur Oxycodone Screen (Negative) Urine Methadone Screen (Negative) Ur Barbiturates Screen (Negative) U Tricyclic Antidepress (Negative) Ur Phencyclidine Scrn (Negative) Ur Amphetamines Screen (Negative) U Methamphetamines Scrn (Negative) Ur MDMA Scrn (Ecstasy) (Negative) U Benzodiazepines Scrn (Negative) Urine Cocaine Screen (Negative) U Marijuana (THC) Screen (Negative) Urine pH (Normal) Urine Specific [place] (Normal) Ethyl Alcohol (<10) mg/dL Ur Creatinine (Normal) Blood Type Antibody Screen Imaging Data CT scan - head: Radiologist's Impression: [place] [address] CT Scan Report Signed Patient: Jay Louise MR#: [id number] : 1955 Acct:[id number] Age/Sex: 70 / M Date of Service: 09/13/25 Loc: ED Accession Number: [id number] Procedure: CT head/brain wo con Ordering Provider: Vincent Saab D.O. PROCEDURE: CT HEAD/BRAIN WO CON INDICATIONS: Trauma TECHNIQUE: Noncontrast 4.5 mm thick angled axial sections acquired from the foramen magnum to the vertex, with coronal and sagittal reformats. For radiation dose reduction, the following was used: automated exposure control, adjustment of mA and/or kV according to patient size. COMPARISON: None. FINDINGS: Image quality: Diagnostic. CSF spaces: Basal cisterns are patent. No extra-axial fluid collections. Ventricles are normal in size and shape. Brain: No midline shift. No intracranial mass effect or hemorrhage. Nascimento-white matter interface is normal. Skull and face: Calvarium and visualized facial bones are intact, without suspicious lesions. Sinuses: Visualized sinuses and mastoids are clear. IMPRESSION: No acute intracranial pathology. Approved by: Lisa Guardado M.D.,Ph.D. on 09/13/2025 at 21:27 CT - cervical spine: Radiologist's Impression: [place] [address] CT Scan Report Signed Patient: Jay Louise MR#: [id number] : 1955 Acct:[id number] Age/Sex: 70 / M Date of Service: 09/13/25 Loc: ED Accession Number: [id number] Procedure: CT cervical spine wo con Ordering Provider: Vincent Saab D.O. PROCEDURE: CT CERVICAL SPINE WO CON INDICATIONS: Trauma TECHNIQUE: Noncontrast 3 mm thick sections acquired from the skull base to the T4 level. Sagittal and coronal reformats were then constructed. For radiation dose reduction, the following was used: automated exposure control, adjustment of mA and/or kV according to patient size. COMPARISON: None. FINDINGS: Image quality: Diagnostic. Bones: No fractures or dislocations. Visualized superior ribs are intact. Status post intervertebral disc spacer at C4-C5. C5-C7 ACDF. No evidence of hardware complication. Soft tissues: Prevertebral soft tissues are normal in thickness. No paravertebral hematomas. No apical pneumothoraces. IMPRESSION: No acute displaced fracture or traumatic subluxation. CT scan - abdomen/pelvis: Radiologist's Impression: [place] [address] CT Scan Report Signed Patient: Jay Louise MR#: [id number] : 1955 Acct:[id number] Age/Sex: 70 / M Date of Service: 09/13/25 Loc: ED Accession Number: [id number] Procedure: CT Trauma Chest Abdomen Pelvis Ordering Provider: Vincent Saab D.O. PROCEDURE: CT TRAUMA CHEST ABDOMEN PELVIS INDICATIONS: TRauma TECHNIQUE: After the administration of intravenous contrast, 5 mm thick sections acquired from the lung apices to the symphysis. 2.5 mm thick coronal and sagittal reformats were acquired. Additional 7 mm thick coronal maximum intensity projection (MIP) reformats acquired through the lungs. Optional 10-minute delayed imaging may be performed from the kidneys to the bladder. For radiation dose reduction, the following was used: automated exposure control, adjustment of mA and/or kV according to patient size. COMPARISON: None. FINDINGS: Image quality: Diagnostic. CHEST: Lower Neck: No enlarged lymph nodes. Thyroid: No thyroid nodules which require sonographic evaluation. Axillae: No enlarged lymph nodes. Chest Wall: No subcutaneous gas. Lungs and Pleura: No pulmonary contusions or lacerations. No acute airspace opacities. No pneumothorax or hemothorax. Mediastinum: No mediastinal hematomas. Heart size is normal. No pericardial effusion. Thoracic aorta and pulmonary arteries demonstrate normal size and enhancement. No mediastinal or hilar adenopathy. Esophagus is normal in caliber. No hiatal hernia. ABDOMEN: Liver: No lacerations. Gallbladder: No radiopaque gallstones or wall thickening. Biliary ducts: No biliary dilation. Pancreas: Homogenous enhancement. Spleen: Homogenous enhancement without laceration or hematoma. Adrenal Glands: Symmetric enhancement. Kidneys and Ureters: Symmetric enhancement. Bilateral nonobstructing renal calculi. No hydronephrosis. No solid mass. No complex renal cystic lesion which requires follow up. Stomach and Bowel: Normal colonic caliber, without significant wall thickening. Normal caliber appendix. Scattered colonic diverticulosis without acute inflammation. Peritoneum: No abnormal intraperitoneal fluid. No free air. Ventral Wall: No hernia. Abdominal Nodes: No retroperitoneal or mesenteric adenopathy by size criteria. Vessels: Aorta and inferior vena cava are normal in size. PELVIS: Pelvic Organs: Prostatomegaly. Bladder: Normal thickness. Pelvic Nodes: No enlarged lymph nodes. Miscellaneous: No inguinal hernias are seen. Bones: Pelvic ring and hip joints appear intact. No displaced rib fractures. IMPRESSION: No evidence of traumatic injury to the chest, abdomen or pelvis. ECG Data Interpretation: Sinus Rhythm HR 74 OR 216 QRS [address]-t wave change Unchange from 11/02/24 [facility] Narrative Medical decision making narrative: All lab work vital signs nurse triage note medication list previous ER visits and all imaging studies reviewed. CT head cervical spine chest abdomen and pelvis showed no acute process. WBC 8.3 14.9 platelets 260 INR 1.0 sodium 142 potassium 4.3 chloride 105 CO2 26 BUN 14 creatinine 0.83 lactic acid 2.2 glucose 120 LFTs normal [id number]. UDS normal alcohol 280. Two sets troponin less than 0.012. Differential diagnosis hemorrhage, pneumothorax, splenic rupture, liver laceration, fracture, dislocation. Lactic acid initially was 2.2 than 1 up to 6.4 and then came back down to 3.1 after 3 L total of lactated Ringer's and then 3.2 after 4th L of LR. Narcan prepack given rx prior to d/c home. Discharge Plan Departure Patient Disposition: Home Clinical Impression: Alcohol intoxication, Fall Instructions: DI for Alcohol Use Disorder Activity Restrictions/Additional Instructions: Return with new or worsening symptoms. Follow up with PCP in 1-2 days for recheck. Prescriptions: No Action rosuvastatin 20 mg tablet 20 mg PO DAILY Qty: 90 3RF trazodone 100 mg tablet 100 mg PO DAILY Qty: 90 3RF levothyroxine 88 mcg tablet 88 mcg PO DAILY Qty: 90 3RF fluoxetine 20 mg capsule 40 mg PO DAILY Qty: 180 3RF diltiazem HCl 300 mg capsule,extended release 24 hr 300 mg PO DAILY Qty: 90 1RF triamcinolone acetonide 0.1 % ointment 1 applic topical DAILY docusate sodium 100 mg capsule 100 mg PO DAILY hydrocodone-acetaminophen 5-325 mg tablet 1 tab PO TID PRN (Reason: pain) Qty: 90 0RF hydrocodone-acetaminophen 5-325 mg tablet 1 tab PO TID PRN (Reason: pain) Qty: 90 0RF losartan 50 mg tablet 50 mg PO DAILY Qty: 90 3RF hydrocodone-acetaminophen 5-325 mg tablet 1 tab PO TID PRN (Reason: pain) Qty: 90 0RF aspirin 81 mg tablet,delayed release (DR/EC) 81 mg PO DAILY cetirizine 10 mg tablet 10 mg PO DAILY PRN (Reason: Allergic Symptoms) multivitamin Tablet 1 tab PO DAILY Probiotic Digestive Care 20 billion cell capsule 1 cell PO DAILY Rx Instructions: 1 cap daily senna 8.6 mg capsule 8.6 mg PO DAILY cholecalciferol (vitamin D3) [Vitamin D3] 50 mcg (2,000 unit) Capsule 50 mcg PO DAILY potassium citrate 99 mg Capsule 99 mg PO DAILY Referrals: Kiel Sampson MD [Primary Care Provider, Internal Medicine] Stand Alone Forms: Patient Portal/API
--- NOTE | 2025-09-13 19:54 | DI.CT.S_ITS ---
PROCEDURE: CT HEAD/BRAIN WO CON INDICATIONS: Trauma TECHNIQUE: Noncontrast 4.5 mm thick angled axial sections acquired from the foramen magnum to the vertex, with coronal and sagittal reformats. For radiation dose reduction, the following was used: automated exposure control, adjustment of mA and/or kV according to patient size. COMPARISON: None. FINDINGS: Image quality: Diagnostic. CSF spaces: Basal cisterns are patent. No extra-axial fluid collections. Ventricles are normal in size and shape. Brain: No midline shift. No intracranial mass effect or hemorrhage. Nascimento- white matter interface is normal. Skull and face: Calvarium and visualized facial bones are intact, without suspicious lesions. Sinuses: Visualized sinuses and mastoids are clear. IMPRESSION: No acute intracranial pathology. Approved by: Lisa Guardado M.D.,Ph.D. on 09/13/2025 at 21:27
--- NOTE | 2025-09-13 19:54 | DI.CT.S_ITS ---
PROCEDURE: CT CERVICAL SPINE WO CON INDICATIONS: Trauma TECHNIQUE: Noncontrast 3 mm thick sections acquired from the skull base to the T4 level. Sagittal and coronal reformats were then constructed. For radiation dose reduction, the following was used: automated exposure control, adjustment of mA and/or kV according to patient size. COMPARISON: None. FINDINGS: Image quality: Diagnostic. Bones: No fractures or dislocations. Visualized superior ribs are intact. Status post intervertebral disc spacer at C4-C5. C5-C7 ACDF. No evidence of hardware complication. Soft tissues: Prevertebral soft tissues are normal in thickness. No paravertebral hematomas. No apical pneumothoraces. IMPRESSION: No acute displaced fracture or traumatic subluxation. Approved by: Lisa Guardado M.D.,Ph.D. on 09/13/2025 at 21:29
[2025-09-13] MEDS: droPERidol 2.5 MG/ML VIAL IM (20:10)
[2025-09-13] MEDS: diphenhydrAMINE 50 MG/ML VIAL IM (20:10)
[2025-09-13 20:33] LABS: Add Manual Diff / Slide Review NO; Hematocrit 42.8 % (41-53); Hemoglobin 14.9 g/dL (13.5-17.5); Lymphocytes Absolute Auto 1400 /uL (1100-4500); Mean Corpuscular HGB Conc 34.8 % (30-36); Mean Corpuscular Hemoglobin 33.5 PG (26-34); Mean Corpuscular Volume 96.1 fL (80-100); Platelet Count 260 X10^3/uL (150-400)
[2025-09-13 20:45] LABS: INR 1.0 (0.9-1.3); Prothrombin Time 11.7 SECONDS (9.4-12.5)
[2025-09-13] MEDS: LACTATED RINGERS 1,000 ML 1000 ML IV (20:46)
[2025-09-13 20:48] LABS: Lactate (Lactic Acid) 2.2 mmol/L (0.7-2.1); PTT Partial Thromboplastin Tim 28 SECONDS (25.1-36.5)
[2025-09-13 20:49] LABS: Alanine Aminotransferase 29 IU/L (<50); Albumin 4.8 g/dL (3.5-5.0); Albumin Globulin Ratio 1.4 (1.0-2.8); Alkaline Phosphatase 96 U/L (38-126); Blood Urea Nitrogen 14 mg/dL (9-20); Calcium 9.5 mg/dL (8.4-10.2); Carbon Dioxide 26 mmol/L (22-32); Chloride 105 mmol/L (98-107); Estimated Glomerular Filt Rate > 60 mL/min (>60); Globulin 3.4 g/dL (1.7-4.1); Glucose 120 mg/dL (70-99); HEMOLYSIS 15 (0-50); Lipase 43 U/L (23-300); Potassium 4.3 mmol/L (3.4-5.1); Sodium 142 mmol/L (137-145); Total Protein 8.2 g/dL (6.3-8.2)
[2025-09-13 20:57] LABS: Ethanol (ETOH) 289 mg/dL (<10)
--- NOTE | 2025-09-13 21:06 | PC.NURSE ---
Patient's room alarm kept coming on because pulse ox probe was off. This GOVERNMENT CONTRACTS MANAGER went to go place the pulse ox probe back on their finger, but patient refused to let this GOVERNMENT CONTRACTS MANAGER place the probe back on finger and said I don't want it back on. Don't touch me. This GOVERNMENT CONTRACTS MANAGER educated patiet on the importance of monitoring heart rate and oxygen levels, but patient said if you want to check my heart, then check me heart. Patient's nurse made aware of situation.
[2025-09-13 21:26] LABS: UR Morphine/Opiate cutoff 300 Negative (Negative); Ur Specific Gravity Normal (Normal); Urine MDMA Negative (Negative); Urine Methamphetamines Negative (Negative); Urine Tetrahydrocannabinol Negative (Negative); Urine Tricyclic Antidepressant Negative (Negative)
--- NOTE | 2025-09-13 21:44 | PC.NURSE ---
Upon return from CT soft restraints removed, pt continues to sleep after urinating in urinal.
[2025-09-13 22:04] LABS: Reflexed Lactate in 2 Hours Y
--- NOTE | 2025-09-13 22:06 | EKG_ITS ---
Located Within [facility] [address], [place] [address] Test Date: 2025-09-13 Pat Name: Jay Louise Department: Located Within [facility] Room: Gender: Male [employer] Supervisor: LOLIS : 1955 Requested By: Order Number: [id number] Reading MD: Vincent Pierson MD Measurements Intervals [place] Rate: 74 P: 49 IA: 216 QRS: -31 QRSD: 94 T: 26 QT: 406 QTc: 450 Interpretive Statements Sinus rhythm with 1st degree AV block Left axis deviation Electronically Signed On 09-14-2025 7:40:41 PST by Vincent Pierson MD
--- NOTE | 2025-09-13 22:17 | PC.NURSE ---
Pt utilizing urinal at bedside intermittently independently
[2025-09-13 22:24] LABS: Troponin I < 0.012 ng/mL (0.01-0.034)
[2025-09-13 23:13] LABS: Lactate 2HR (Lactic Acid Rflx) 6.4 mmol/L (0.7-2.1)
[2025-09-13 23:23] LABS: Troponin I < 0.012 ng/mL (0.01-0.034)
[2025-09-13] MEDS: LACTATED RINGERS 1,000 ML 2000 ML IV (23:24)
[2025-09-14] VITALS: BP 117/63; PULSE 81; RESP 18; O2SAT 97
[2025-09-14 00:30] VITALS: BP 125/65; PULSE 78; RESP 14; O2SAT 98
[2025-09-14] MEDS: LACTATED RINGERS 1,000 ML 2000 ML IV (00:30)
[2025-09-14 01:00] VITALS: BP 124/61; PULSE 81; RESP 15; O2SAT 97
[2025-09-14 01:19] LABS: Lactate (Lactic Acid) 3.1 mmol/L (0.7-2.1)
[2025-09-14] MEDS: LACTATED RINGERS 1,000 ML 1000 ML IV (02:05)
[2025-09-14 02:38] LABS: Reflexed Lactate in 2 Hours Y
[2025-09-14 04:03] LABS: Lactate 2HR (Lactic Acid Rflx) 3.2 mmol/L (0.7-2.1)
[2025-09-14] MEDS: NALOXONE 4 MG NASAL SPRAY MISC (04:14)
[2025-09-14 06:52] VITALS: BP 168/93; PULSE 89; RESP 20; O2SAT 96
== END 2025-09-14 07:00 | disposition home or self-care (01) ==
PROVIDERS: Emergency Provider Family Medicine; PCP Internal Medicine
DX: F10.129 Alcohol abuse with intoxication, unspecified (principal); W18.30XA Fall on same level, unspecified, initial encounter; Y90.8 Blood alcohol level of 240 mg/100 ml or more
CPT/HCPCS: 36415; 70450; 71275; 72125; 74177; 80053; 80305; 80320; 83605; 83690; 84484; 85025; 85610; 85730; 86850; 86900; 86901; 93005; 93010; 94760; 96360; 96361; 96372; 99284; 99285; A9270; J1200; J1790; J7120; Q9967